=== PATIENT | male | born 1970 | race African-American/Black ===

== ENCOUNTER 2021-06-20 20:06 | Emergency (ER) | payer MEDICAID ==
[~2021-06-20] VITALS: Ht 172.7 cm; Wt 77.8 kg
[2021-06-20] MEDS ORDERED: BENZOCAINE/LANOLIN/ALOE VERA SPRAY TOP ONE (21:45)
[2021-06-20] MEDS ORDERED: AMPICILLIN SOD/SULBACTAM NA 3 G in SODIUM CHLORIDE 0.9% 100 ML IV SCH (22:15)
[2021-06-20] MEDS ORDERED: METHYLPREDNISOLONE SOD SUCC 125 MG/2 ML VIAL IV ONE (22:30)
[2021-06-20] MEDS ORDERED: KETOROLAC 15MG/ML VIAL IV ONE (22:30)
[2021-06-20 22:51] LABS: HEMATOCRIT. 45.2 % (42.0-52.0); HEMOGLOBIN. 15.1 g/dL (14.0-18.0); MEAN CORPUSCULAR HEMOGLOBIN 32.5 pg (28.0-32.0); MEAN CORPUSCULAR VOLUME 97.3 fL (80.0-94.0); MEAN PLATELET VOLUME 8.2 fl (7.4-10.4); PLATELET 325 x1000/uL (130-400); RED BLOOD CELL COUNT 4.64 mill/uL (4.7-6.1); RED CELL DISTRIBUTION WIDTH 13.5 % (11.6-14.6)
[2021-06-20 22:59] LABS: CHLORIDE 107 mEq/L (98-107)
[2021-06-20 23:49] LABS: PLATELET ESTIMATE NORMAL
[2021-06-21] MEDS ORDERED: AMOX-424 MT (00:08)
[2021-06-21] MEDS ORDERED: ACET-2708 MT (00:12)
[2021-06-21] MEDS ORDERED: IBUP-2028 MT (00:15)
[2021-06-21 00:35] VITALS: BP 150/84
== END 2021-06-21 00:40 | disposition home or self-care (01) ==
LOC: ER 20:06
DX: J36 Peritonsillar abscess (principal); J45.909 Unspecified asthma, uncomplicated; I10 Essential (primary) hypertension; E05.90 Thyrotoxicosis, unspecified without thyrotoxic crisis or storm
CPT/HCPCS: 36415; 42700; 80053; 83605; 85025; 87040; 96365; 96375; 99284; J0295; J1885; J2930; J7050; 10060